=== PATIENT | female | born 1995 | race American Indian/Alaskan Native ===

== ENCOUNTER 2019-11-04 23:37 | Emergency (ER) | payer SELFPAY ==
[2019-11-04 23:48] VITALS: BP 122/52
[2019-11-05 00:57] LABS: Bacteria,Urine 1+ /HPF (Negative); Bilirubin,Urine NEG (Negative); Blood,Urine NEG (Negative); Color,Urine Yellow (Yellow); Protein,Urine <15 mg/dL mg/dL (Negative); Urobilinogen,Urine < 2.0 mg/dL (<2.0)
== END 2019-11-05 04:30 | disposition left against medical advice (07) ==
LOC: ED 23:37
DX: O26.892 Other specified pregnancy related conditions, second trimester (principal); Z53.21 Procedure and treatment not carried out due to patient leaving prior to being seen by health care provider
CPT/HCPCS: 81001

== ENCOUNTER 2021-06-27 16:21 | Emergency (ER) | payer MEDICAID ==
[2021-06-27 16:47] VITALS: BP 121/68
--- NOTE | 2021-06-27 17:07 | Emergency Department Report ---
ED Female HPI - General Chief complaint: Dyspnea/Respdistress Stated complaint: RUNNY NOSE SICK YEAST INFECTION Time Seen by Provider: 06/27/21 17:02 Source: patient Mode of arrival: Ambulatory Limitations: No Limitations - History of Present Illness Initial comments: Chief complaint: "I have a yeast infection". HPI: This is a healthy 26-year-old female with no significant past medical history who presents with white creamy discharge for 2 days. She denies vomiting, abdominal pain, vaginal bleeding. She has not been exposed to STDs. Patient also has cough. Her mother had similar symptoms several cold. Her young daughter has similar symptoms. Monday she tested negative for COVID-19. MD Complaint: vaginal discharge -: Gradual, days(s) (2 days) Severity: mild Consistency: constant Improves with: none Worsens with: none Are you Now?: No Associated Symptoms: vaginal discharge - Related Data Previous Rx's Medication Instructions Recorded Last Taken Type Fluconazole [Diflucan TAB] 200 mg PO ONCE #1 tablet 06/27/21 Unknown Rx Miconazole/Cleanser 17 On Wipe 1 each VG DAILY 7 Days #1 kit 06/27/21 Unknown Rx [Monistat 7 Combination Pack] metroNIDAZOLE [Flagyl TAB] 500 mg PO Q12HR 7 Days #14 tab 06/27/21 Unknown Rx Allergies Allergy/AdvReac Type Severity Reaction Status Date / Time No Known Allergies Allergy Verified 11/04/19 23:41 ED Review of Systems ROS: Stated complaint: RUNNY NOSE SICK YEAST INFECTION Other details as noted in HPI Comment: All other systems reviewed and negative Constitutional: denies: fever ENT: denies: throat pain, dental pain Respiratory: cough. denies: shortness of breath Cardiovascular: denies: chest pain Gastrointestinal: denies: abdominal pain, nausea, vomiting Genitourinary: discharge ED Past Medical Hx - Past Medical History Previous Medical History?: No - Surgical History Past Surgical History?: No - Social History Smoking Status: Never Smoker Substance Use Type: None - Medications Home Medications: Home Medications Medication Instructions Recorded Confirmed Last Taken Type Fluconazole [Diflucan TAB] 200 mg PO ONCE #1 tablet 06/27/21 Unknown Rx Miconazole/Cleanser 17 On Wipe 1 each VG DAILY 7 Days #1 kit 06/27/21 Unknown Rx [Monistat 7 Combination Pack] metroNIDAZOLE [Flagyl TAB] 500 mg PO Q12HR 7 Days #14 tab 06/27/21 Unknown Rx ED Physical Exam - General Limitations: No Limitations General appearance: alert, in no apparent distress, other (Well-appearing normal gait appears comfortable nontoxic-appearing) - Head Head exam: Present: atraumatic, normocephalic - Eye Eye exam: Present: normal appearance - ENT ENT exam: Present: mucous membranes moist - Neck Neck exam: Present: normal inspection - Respiratory Respiratory exam: Present: normal lung sounds bilaterally. Absent: respiratory distress, wheezes, rales, rhonchi - Cardiovascular Cardiovascular Exam: Present: regular rate, normal rhythm, normal heart sounds. Absent: systolic murmur, diastolic murmur, rubs, gallop - GI/Abdominal GI/Abdominal exam: Present: soft, normal bowel sounds - Extremities Exam Extremities exam: Present: normal inspection - Neurological Exam Neurological exam: Present: alert, oriented X3 - Psychiatric Psychiatric exam: Present: normal affect, normal mood - Skin Skin exam: Present: warm, dry, intact, normal color. Absent: rash ED Course Vital Signs 06/27/21 16:46 Temperature 98.1 F Pulse Rate 96 H Respiratory 19 Rate Blood Pressure 121/68 O2 Sat by Pulse 97 Oximetry ED Medical Decision Making - Medical Decision Making 1. Vaginitis: We will cover for candidal vaginitis as well as bacterial vaginosis with fluconazole Monistat and metronidazole. 2. Viral URI: Recent negative Covid test. OTC supportive care recommended Critical care attestation.: If time is entered above; I have spent that time in minutes in the direct care of this critically ill patient, excluding procedure time. ED Disposition Clinical Impression: Vaginitis, Viral URI Disposition: 01 HOME / SELF CARE / HOMELESS Is pt being admited?: No Does the pt Need Aspirin: No Condition: Stable Instructions: Bacterial Vaginosis, Joll-my-Fupv, Vaginal Yeast Infection, Adult Prescriptions: Fluconazole [Diflucan TAB] 200 mg PO ONCE #1 tablet metroNIDAZOLE [Flagyl TAB] 500 mg PO Q12HR 7 Days #14 tab Miconazole/Cleanser 17 On Wipe [Monistat 7 Combination Pack] 1 each VG DAILY 7 Days #1 kit Referrals: SHERWIN QUEZADA MD [Staff Physician] - 3-5 Days
== END 2021-06-27 17:15 | disposition home or self-care (01) ==
LOC: ED 16:21
DX: N76.0 Acute vaginitis (principal); J06.9 Acute upper respiratory infection, unspecified
CPT/HCPCS: 99281

== ENCOUNTER 2022-01-14 20:45 | Emergency (ER) | payer MEDICAID ==
[2022-01-15] MEDS ORDERED: ACETAMINOPHEN 500 MG TAB PO ONE (04:33)
[2022-01-15] MEDS ORDERED: IBUPROFEN 600 MG TAB PO ONE (04:33)
--- NOTE | 2022-01-15 06:04 | Emergency Department Report ---
ED Upper Extremity Inj HPI - General Chief Complaint: Extremity Injury, Upper Stated Complaint: LT SHOULDER PAIN Source: patient Mode of arrival: Ambulatory Limitations: No Limitations - History of Present Illness Initial Comments: Patient is a 27-year-old -[place] female with no past medical history presents to the ED with complaint of acute onset persistent left shoulder pain after she worked out at the gym with stretches and heavy lifting. Patient stated that she has previously had pain in that same left shoulder but it appears that the pain was aggravated. Patient stated that the pain was radiates to the left clavicle. Patient states that she is unable to perform any active range of motion of the left shoulder because of worsening pain. Patient denies fall, traumatic injury, chest pain or shortness of breath, neck pain, headache, dizziness, syncope, numbness and tingling or weakness of left arm. MD Complaint: Injury to:: left, shoulder (Left shoulder pain) -: Sudden, days(s) (2) Other Extremity Injury: Shoulder: Left (Left shoulder pain) Other Injuries: none Handedness: right Place: home Severity scale (0 -10): 7 Improves With: rest Worsens With: movement of extremity Context: injury (Heavy lifting during physical exercise) Associated Symptoms: denies other symptoms. denies: weakness, neck pain, suspects foreign body, nausea/vomiting - Related Data Previous Rx's Medication Instructions Recorded Last Taken Type Fluconazole [Diflucan TAB] 200 mg PO ONCE #1 tablet 06/27/21 Unknown Rx Miconazole/Cleanser 17 On Wipe 1 each VG DAILY 7 Days #1 kit 06/27/21 Unknown Rx [Monistat 7 Combination Pack] metroNIDAZOLE [Flagyl TAB] 500 mg PO Q12HR 7 Days #14 tab 06/27/21 Unknown Rx Baclofen 20 mg PO Q12H PRN #30 01/15/22 Unknown Rx Naproxen 500 mg PO Q12H PRN #30 tab 01/15/22 Unknown Rx Allergies Allergy/AdvReac Type Severity Reaction Status Date / Time No Known Allergies Allergy Verified 11/04/19 23:41 ED Review of Systems ROS: Stated complaint: LT SHOULDER PAIN Other details as noted in HPI Constitutional: denies: chills, fever Eyes: denies: eye pain, eye discharge, vision change ENT: denies: ear pain, throat pain Respiratory: denies: cough, shortness of breath, wheezing Cardiovascular: denies: chest pain, palpitations Endocrine: no symptoms reported Gastrointestinal: denies: abdominal pain, nausea, diarrhea Genitourinary: denies: urgency, dysuria, discharge Musculoskeletal: arthralgia (Left shoulder pain). denies: back pain, joint swelling Skin: denies: rash, lesions Neurological: denies: headache, weakness, paresthesias Psychiatric: denies: anxiety, depression Hematological/Lymphatic: denies: easy bleeding, easy bruising ED Past Medical Hx - Social History Smoking Status: Never Smoker Substance Use Type: None - Medications Home Medications: Home Medications Medication Instructions Recorded Confirmed Last Taken Type Fluconazole [Diflucan TAB] 200 mg PO ONCE #1 tablet 06/27/21 Unknown Rx Miconazole/Cleanser 17 On Wipe 1 each VG DAILY 7 Days #1 kit 06/27/21 Unknown Rx [Monistat 7 Combination Pack] metroNIDAZOLE [Flagyl TAB] 500 mg PO Q12HR 7 Days #14 tab 06/27/21 Unknown Rx Baclofen 20 mg PO Q12H PRN #30 01/15/22 Unknown Rx Naproxen 500 mg PO Q12H PRN #30 tab 01/15/22 Unknown Rx ED Physical Exam - General Limitations: No Limitations General appearance: alert, in no apparent distress - Head Head exam: Present: atraumatic, normocephalic, normal inspection - Eye Eye exam: Present: normal appearance, PERRL, EOMI Pupils: Present: normal accommodation - ENT ENT exam: Present: normal exam, normal orophraynx, mucous membranes moist, TM's normal bilaterally, normal external ear exam - Neck Neck exam: Present: normal inspection, full ROM. Absent: tenderness - Respiratory Respiratory exam: Present: normal lung sounds bilaterally. Absent: respiratory distress, wheezes, rales, rhonchi, chest wall tenderness, decreased breath sounds, prolonged expiratory - Cardiovascular Cardiovascular Exam: Present: regular rate, normal rhythm, normal heart sounds. Absent: systolic murmur, diastolic murmur, rubs, gallop - GI/Abdominal GI/Abdominal exam: Present: soft, normal bowel sounds. Absent: tenderness, guarding, rebound, hyperactive bowel sounds, hypoactive bowel sounds, organomegaly - Extremities Exam Extremities exam: Present: normal inspection, full ROM, tenderness (Palpable left shoulder tenderness), normal capillary refill. Absent: pedal edema, joint swelling, calf tenderness - Back Exam Back exam: Present: normal inspection, full ROM. Absent: tenderness, CVA tenderness (R), CVA tenderness (L), muscle spasm, paraspinal tenderness, vertebral tenderness - Neurological Exam Neurological exam: Present: alert, oriented X3, CN II-XII intact, normal gait, reflexes normal - Psychiatric Psychiatric exam: Present: normal affect, normal mood - Skin Skin exam: Present: warm, dry, intact, normal color. Absent: rash ED Course Vital Signs 01/14/22 01/15/22 20:56 05:12 Temperature 98.3 F Pulse Rate 89 Respiratory 18 14 Rate Blood Pressure 105/56 O2 Sat by Pulse 98 Oximetry ED Medical Decision Making - Radiology Data Radiology results: report reviewed, image reviewed Left shoulder x-ray showed no acute fractures or subluxations. - Medical Decision Making This is a 27-year-old -[place] female with no past medical history presents to the ED with complaint of acute onset persistent left shoulder pain after she worked out at the gym with stretches and heavy lifting. Patient stated that she has previously had pain in that same left shoulder but it appears that the pain was aggravated. Patient stated that the pain was radiates to the left clavicle. Patient states that she is unable to perform any active range of motion of the left shoulder because of worsening pain. In the ED, patient is alert and oriented x3 and is not in any distress. Left shoulder x- ray showed no acute fractures or subluxations. Patient was treated for pain in the ED and discharged home on pain medications and advised to follow-up with her primary care physician in 7 to 10 days for reevaluation or return to the ED immediately if symptoms get worse. - Differential Diagnosis Shoulder fracture; shoulder sprain; muscle strain Critical care attestation.: If time is entered above; I have spent that time in minutes in the direct care of this critically ill patient, excluding procedure time. ED Disposition Clinical Impression: Sprain of left shoulder girdle Qualifiers: Encounter type: initial encounter Qualified Code(s): S43.92XA - Sprain of unspecified parts of left shoulder girdle, initial encounter Muscle strain of left shoulder Qualifiers: Encounter type: initial encounter Qualified Code(s): S46.912A - Strain of u nspecified muscle, fascia and tendon at shoulder and upper arm level, left arm, initial encounter Disposition: HOME / SELF CARE / HOMELESS Is pt being admited?: No Does the pt Need Aspirin: No Condition: Stable Instructions: Muscle Strain, [id number], Shoulder Sprain Additional Instructions: Left shoulder x-ray showed no acute fractures or subluxations. Therefore take medication with food, drink plenty of fluids and follow-up with your primary care physician in 5 to 7 days for reevaluation. Return to the ED immediately if symptoms get worse. Prescriptions: Baclofen 20 mg PO Q12H PRN #30 PRN Reason: Muscle Spasm Naproxen 500 mg PO Q12H PRN #30 tab PRN Reason: Pain , Severe (7-10) Referrals: [facility] [Provider Group] - 3-5 Days Time of Disposition: 06:05 Print Language: AZERI
[2022-01-15 06:29] VITALS: BP 111/63
--- NOTE | 2022-01-15 11:32 | XRay Report ---
LEFT SHOULDER 3 VIEW(S) INDICATION / CLINICAL INFORMATION: left shoulder pain. COMPARISON: None available. FINDINGS: BONES / JOINT(S): No acute fracture or subluxation. No significant arthritis. SOFT TISSUES: No significant abnormality. ADDITIONAL FINDINGS: None. IMPRESSION: 1. No acute findings. No significant abnormality. Signer Name: Miko Jose II, MD Signed: 01/15/2022 5:03 AM Workstation Name: [id number]
== END 2022-01-15 06:29 | disposition home or self-care (01) ==
LOC: ED 20:45
DX: S46.912A Strain of unspecified muscle, fascia and tendon at shoulder and upper arm level, left arm, initial encounter (principal); X50.0XXA Overexertion from strenuous movement or load, initial encounter; Y93.89 Activity, other specified; Y92.89 Other specified places as the place of occurrence of the external cause; Y99.8 Other external cause status
CPT/HCPCS: 99283

== ENCOUNTER 2022-04-01 22:55 | Emergency (ER) | payer MEDICAID ==
[2022-04-02] MEDS ORDERED: ACETAMINOPHEN 500 MG TAB PO ONE (07:26)
--- NOTE | 2022-04-02 08:25 | Emergency Department Report ---
ED HPI - General Chief complaint: Abdominal Pain Stated complaint: MISCARRIAGE Time Seen by Provider: 04/02/22 07:24 Source: patient Mode of arrival: Ambulatory Limitations: No Limitations - History of Present Illness Initial comments: Is a 27-year-old female G3, last menstrual cycle 2 months ago. States vaginal bleeding times this a.m. patient denies nausea vomiting pain is rated at 5/10 bilateral lower abdominal cramping. Patient has not seen [employer] DELIVERY CHECKER in 1 month. Patient denies other history. Patient denies significant ABO history. Patient is tolerating p.o. intake there is no nausea or vomiting. No fever or chills. Patient rates bleeding as light. MD Complaint: abdominal pain, vaginal bleeding - Related Data Previous Rx's Medication Instructions Recorded Last Taken Type Fluconazole [Diflucan TAB] 200 mg PO ONCE #1 tablet 06/27/21 Unknown Rx Miconazole/Cleanser 17 On Wipe 1 each VG DAILY 7 Days #1 kit 06/27/21 Unknown Rx [Monistat 7 Combination Pack] metroNIDAZOLE [Flagyl TAB] 500 mg PO Q12HR 7 Days #14 tab 06/27/21 Unknown Rx Baclofen 20 mg PO Q12H PRN #30 01/15/22 Unknown Rx Naproxen 500 mg PO Q12H PRN #30 tab 01/15/22 Unknown Rx Allergies Allergy/AdvReac Type Severity Reaction Status Date / Time No Known Allergies Allergy Verified 11/04/19 23:41 ED Review of Systems ROS: Stated complaint: MISCARRIAGE Other details as noted in HPI Constitutional: denies: chills, fever Eyes: denies: eye pain, eye discharge, vision change ENT: denies: ear pain, throat pain Respiratory: denies: cough, shortness of breath, wheezing Cardiovascular: denies: chest pain, palpitations Endocrine: no symptoms reported Gastrointestinal: abdominal pain. denies: nausea, vomiting Genitourinary: other. denies: urgency, dysuria, frequency (Vaginal bleeding), discharge Musculoskeletal: back pain Skin: denies: rash, lesions Neurological: denies: headache, weakness, paresthesias, vertigo Psychiatric: denies: anxiety, depression Hematological/Lymphatic: denies: easy bleeding, easy bruising ED Past Medical Hx - Past Medical History Previous Medical History?: No - Surgical History Past Surgical History?: No - Social History Smoking Status: Never Smoker Substance Use Type: None - Medications Home Medications: Home Medications Medication Instructions Recorded Confirmed Last Taken Type Fluconazole [Diflucan TAB] 200 mg PO ONCE #1 tablet 06/27/21 Unknown Rx Miconazole/Cleanser 17 On Wipe 1 each VG DAILY 7 Days #1 kit 06/27/21 Unknown Rx [Monistat 7 Combination Pack] metroNIDAZOLE [Flagyl TAB] 500 mg PO Q12HR 7 Days #14 tab 06/27/21 Unknown Rx Baclofen 20 mg PO Q12H PRN #30 01/15/22 Unknown Rx Naproxen 500 mg PO Q12H PRN #30 tab 01/15/22 Unknown Rx ED Physical Exam - General Limitations: No Limitations General appearance: alert, in no apparent distress - Head Head exam: Present: normocephalic, normal inspection - Eye Eye exam: Present: EOMI Pupils: Present: normal accommodation - ENT ENT exam: Present: mucous membranes moist - Neck Neck exam: Present: normal inspection, full ROM. Absent: tenderness, lymphadeno rich - Respiratory Respiratory exam: Present: normal lung sounds bilaterally. Absent: respiratory distress, wheezes - Cardiovascular Cardiovascular Exam: Present: regular rate, normal rhythm, normal heart sounds. Absent: systolic murmur, diastolic murmur, rubs, gallop - GI/Abdominal GI/Abdominal exam: Present: soft, normal bowel sounds. Absent: distended, tenderness, guarding, rebound, rigid - Rectal Rectal exam: Present: deferred - External exam: Present: other - Extremities Exam Extremities exam: Present: normal inspection, full ROM, normal capillary refill. Absent: pedal edema - Back Exam Back exam: Present: normal inspection, full ROM. Absent: CVA tenderness (R), CVA tenderness (L) - Neurological Exam Neurological exam: Present: alert, oriented X3, CN II-XII intact, normal gait - Expanded Neurological Exam Expanded Patient oriented to: Present: person, place, time Speech: Present: fluid speech - Psychiatric Psychiatric exam: Present: normal affect, normal mood - Skin Skin exam: Present: warm, dry, intact, normal color. Absent: rash ED Course Vital Signs 04/02/22 04/02/22 00:30 07:56 Temperature 98.4 F 97.5 F L Pulse Rate 70 72 Respiratory 18 16 Rate Blood Pressure 137/92 Blood Pressure 106/62 [Right] O2 Sat by Pulse 96 98 Oximetry ED Medical Decision Making - Lab Data Result diagrams: 04/02/22 07:34 Labs 04/02/22 04/02/22 07:34 07:34 WBC 8.2 RBC 4.91 Hgb 13.1 Hct 40.6 MCV 83 MCH 27 L MCHC 32 RDW 15.9 H Plt Count 236 Lymph % (Auto) 38.8 H [place] % (Auto) 7.1 Eos % (Auto) 3.5 Baso % (Auto) 0.7 Lymph # (Auto) 3.2 [place] # (Auto) 0.6 Eos # (Auto) 0.3 Baso # (Auto) 0.1 Seg Neutrophils % 49.9 Seg Neutrophils # 4.1 HCG, Quant 10.29 H - Radiology Data Radiology results: report reviewed, image reviewed ULTRASOUND OBSTETRIC INDICATION / CLINICAL INFORMATION: vag bleeding preg. TECHNIQUE: Transabdominal. COMPARISON: None available. FINDINGS: GESTATIONAL SAC: Not visualized YOLK SAC: Not visualized EMBRYO/FETUS: Nonvisualized ADNEXA: No significant abnormality. Left ovary nonvisualized. FREE FLUID: None. ADDITIONAL FINDINGS: None. IMPRESSION: 1. No sonographic evidence of intrauterine . No adnexal lesions or free fluid. Correlation with serial beta hCG levels and short-term sonographic follow-up ultrasound is recommended. Signer Name: Maxwell Birmingham MD Signed: 04/02/2022 8:58 AM Workstation Name: [id number] Transcribed By: SB Dictated By: MAXWELL BIRMINGHAM MD Electronically Authenticated By: MAXWELL BIRMINGHAM MD Signed Date/Time: 04/02/22857 DD/ 6 TD/TT: ULTRASOUND OBSTETRIC INDICATION / CLINICAL INFORMATION: vag bleeding preg. TECHNIQUE: Transabdominal. COMPARISON: None available. FINDINGS: GESTATIONAL SAC: Not visualized YOLK SAC: Not visualized EMBRYO/FETUS: Nonvisualized ADNEXA: No significant abnormality. Left ovary nonvisualized. FREE FLUID: None. ADDITIONAL FINDINGS: None. IMPRESSION: 1. No sonographic evidence of intrauterine . No adnexal lesions or free fluid. Correlation with serial beta hCG levels and short-term sonographic follow-up ultrasound is recommended. Signer Name: Maxwell Birmingham MD Signed: 04/02/2022 8:58 AM Workstation Name: [id number] Transcribed By: SB Dictated By: MAXWELL BIRMINGHAM MD Electronically Authenticated By: MAXWELL BIRMINGHAM MD Signed Date/Time: 04/02/22857 DD/ 6 TD/TT: Print - Medical Decision Making No intrauterine noted on ultrasound transvaginal or obstetric. Labs normal hCG is 10.9. Plan DC home, follow-up with [employer] DELIVERY CHECKER in 1 to 2 days. Pt declined UA. Return to emergency department should symptoms worsen. Patient verbalized agreement and understanding with discharge plan. Patient DC'd home in stable condition at this time. Critical care attestation.: If time is entered above; I have spent that time in minutes in the direct care of this critically ill patient, excluding procedure time. 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 Return to emergency department saurav d symptoms worsen. Referrals: GAYE DRIVER MD [Staff Physician] - 2-3 Days Forms: Work/School Release Form(ED) Time of Disposition: 09:31
[2022-04-02 08:36] LABS: Basophils # (Auto) 0.1 K/mm3 (0.0-0.1); Basophils % (Auto) 0.7 % (0.0-1.8); Eosinophils # (Auto) 0.3 K/mm3 (0.0-0.4); Eosinophils % (Auto) 3.5 % (0.0-4.3); Hematocrit 40.6 % (30.3-42.9); Hemoglobin 13.1 gm/dl (10.1-14.3); Lymphocytes # (Auto) 3.2 K/mm3 (1.2-5.4); Lymphocytes % (Auto) 38.8 % (13.4-35.0); Mean Corpuscular HGB Conc 32 % (30-34); Mean Corpuscular Volume 83 fl (79-97); Monocytes # (Auto) 0.6 K/mm3 (0.0-0.8); Monocytes % (Auto) 7.1 % (0.0-7.3); Platelet Count 236 K/mm3 (140-440); Red Blood Count 4.91 M/mm3 (3.65-5.03); Red Cell Distribution Width 15.9 % (13.2-15.2)
--- NOTE | 2022-04-02 09:03 | Ultrasound Report ---
ULTRASOUND OBSTETRIC INDICATION / CLINICAL INFORMATION: vag bleeding preg. TECHNIQUE: Transabdominal. COMPARISON: None available. FINDINGS: GESTATIONAL SAC: Not visualized YOLK SAC: Not visualized EMBRYO/FETUS: Nonvisualized ADNEXA: No significant abnormality. Left ovary nonvisualized. FREE FLUID: None. ADDITIONAL FINDINGS: None. IMPRESSION: 1. No sonographic evidence of intrauterine . No adnexal lesions or free fluid. Correlation w ith serial beta hCG levels and short-term sonographic follow-up ultrasound is recommended. Signer Name: Maxwell Navas MD Signed: 04/02/2022 8:58 AM Workstation Name: [id number]
[2022-04-02 10:54] VITALS: BP 110/80
== END 2022-04-02 10:54 | disposition home or self-care (01) ==
LOC: ED 22:55
DX: O20.9 Hemorrhage in early pregnancy, unspecified (principal); Z3A.00 Weeks of gestation of pregnancy not specified; N93.8 Other specified abnormal uterine and vaginal bleeding
CPT/HCPCS: 36415; 76801; 76830; 84702; 85025; 99284